=== PATIENT | female | born 1970 | race American Indian/Alaskan Native ===

== ENCOUNTER 2021-11-04 10:15 | Emergency (ER) | payer MEDICAID ==
--- NOTE | 2021-11-04 10:28 | Event Note ---
ED Screening Note Date of service: 11/04/21 Time: 10:26 ED Screening Note: 51-year-old female with a past medical history of depression and bipolar disorder presents to the ER today with complaints of suicidal ideation, feeling depressed and trying to overdose on Ambien. Patient states that she has had a history of overdose on Ambien before. She states that she has been taking Ambien for the past 9 days, 2 tablets at night and in the past 9 days she is taking 18 tablets. She states that this is not a prescribed medication for her. She denies any illicit drug use or alcohol abuse. This initial assessment/diagnostic orders/clinical plan/treatment(s) is/are subject to change based on patients health status, clinical progression and re- assessment by fellow clinical providers in the ED. Further treatment and workup at subsequent clinical providers discretion. Patient/guardian urged not to elope from the ED as their condition may be serious if not clinically assessed and managed. Initial orders include: Psych order set
[2021-11-04 11:15] LABS: Bilirubin,Urine NEG (Negative); Blood,Urine NEG (Negative); Color,Urine Yellow (Yellow); Mucus,Urine FEW /HPF; Urobilinogen,Urine < 2.0 mg/dL (<2.0)
[2021-11-04 11:20] LABS: Hematocrit 47.1 % (30.3-42.9); Hemoglobin 15.1 gm/dl (10.1-14.3); Mean Corpuscular HGB Conc 32 % (30-34); Mean Corpuscular Volume 95 fl (79-97); Red Blood Count 4.97 M/mm3 (3.65-5.03); Red Cell Distribution Width 14.9 % (13.2-15.2)
[2021-11-04 11:23] LABS: Amphetamine Screen,Urine Negative; Benzodiazepines Screen,Urine Negative; Cannabinoid Screen,Urine Negative; Cocaine Screen,Urine Negative; Methadone Screen,Urine Negative; Opiate Screen,Urine Negative; Platelet Count 335 K/mm3 (140-440)
--- NOTE | 2021-11-04 11:27 | Emergency Department Report ---
HPI - General Chief Complaint: Psych Time Seen by Provider: 11/04/21 10:58 - HPI HPI: 51-year-old female with history of major depressive disorder presents complaining of worsening depression and suicidal ideation over the past 9 days. Patient reports that 1 year ago she tried to commit suicide by overdosing on her prescribed Ambien. She says for the last 9 days she has been taking Ambien 12.5 mg twice daily not for sleep but to "numb the pain". She states that she wants to end her life and that if she had more Ambien she would try to overdose on the medication. She states that she is seeing red eyes in the edilia that looks like the devil. She denies auditory hallucinations. She denies homicidal ideation. She reports that her only physical symptom is mild sore throat over the past couple days. Denies any other physical symptoms or complaints. She is not vaccinated against COVID-19. Denies ingestion of any substances or medications today. ED Past Medical Hx - Past Medical History Previous Medical History?: Yes Hx Psychiatric Treatment: Yes (Depression) Additional medical history: Adominal Hernias - Surgical History Additional Surgical History: Abdominal - Social History Smoking Status: Never Smoker Substance Use Type: None - Medications Home Medications: Home Medications Medication Instructions Recorded Confirmed Last Taken Type Divalproex ER [DepaKOTE ER] 500 mg PO QDAY 11/05/21 11/06/21 Unknown History Lurasidone HCl [Latuda] 1 tab PO QHS 11/05/21 11/06/21 Unknown History Selenium 1 cap PO DAILY 11/05/21 11/06/21 Unknown History Zolpidem Tartrate [Ambien CR] 12.5 mg PO QHS 11/05/21 11/06/21 11/04/21 History Mirtazapine [Remeron] 15 mg PO HS 11/06/21 11/06/21 Unknown History cephALEXin [Keflex] 500 mg PO BID 11/06/21 11/06/21 11/05/21 10:00 History ED Review of Systems ROS: Stated complaint: BAD HEADACHE Other details as noted in HPI Comment: All other systems reviewed and negative Constitutional: denies: chills, fever Eyes: denies: eye pain, vision change ENT: throat pain. denies: congestion Respiratory: denies: cough, shortness of breath Cardiovascular: denies: chest pain, palpitations Gastrointestinal: denies: abdominal pain, nausea, vomiting Genitourinary: denies: dysuria, frequency Musculoskeletal: denies: back pain, arthralgia Skin: denies: rash, lesions Neurological: denies: weakness, numbness, paresthesias Psychiatric: depression, visual hallucinations, suicidal thoughts. denies: auditory hallucinations, homicidal thoughts Physical Exam - Physical Exam Vital Signs: Vital Signs 11/04/21 10:27 Temperature 98.8 F Pulse Rate 79 Respiratory 20 Rate Blood Pressure 132/99 O2 Sat by Pulse 94 Oximetry Physical Exam: GENERAL: Obese female in no acute distress. HEAD: Normocephalic. No obvious signs of trauma. ENT: Dry mucous membranes. Posterior pharynx is normal-appearing without significant tonsillar hypertrophy or exudates. EYES: Extraocular movements are intact. Pupils are equal round and reactive to light bilaterally NECK: Supple. Full ROM is intact. Trachea is midline. LUNGS: Nonlabored breathing. Equal chest rise bilaterally. Clear to auscultation bilaterally. CARDIOVASCULAR: Regular rate and rhythm. No murmurs or rubs. VASCULAR: Cap refill < 2 seconds ABDOMEN: Abdomen is soft and nondistended. There is no significant tenderness, guarding or rebound. SKIN: Skin is warm and dry NEURO: Patient is awake, alert, and oriented. special forces engineer sergeant II-XII grossly intact. No focal deficits. Normal motor and sensory exam throughout. Normal speech. MUSCULOSKELETAL: No obvious deformities. No significant tenderness. Normal ROM throughout. ED Course Vital Signs 11/04/21 10:27 Temperature 98.8 F Pulse Rate 79 Respiratory 20 Rate Blood Pressure 132/99 O2 Sat by Pulse 94 Oximetry ED Medical Decision Making - Lab Data Result diagrams: 11/05/21 05:06 11/04/21 10:38 Lab Results 11/04/21 11/04/21 11/04/21 Range/Units 10:38 10:38 10:38 WBC 16.9 H (4.5-11.0) K/mm3 RBC 4.97 (3.65-5.03) M/mm3 Hgb 15.1 H (10.1-14.3) gm/dl Hct 47.1 H (30.3-42.9) % MCV 95 (79-97) fl MCH 30 (28-32) pg MCHC 32 (30-34) % RDW 14.9 (13.2-15.2) % Plt Count 335 (140-440) K/mm3 Lymph % (Auto) Safety Grooving Machine Operator [place] % (Auto) Safety Grooving Machine Operator Eos % (Auto) Safety Grooving Machine Operator Baso % (Auto) Safety Grooving Machine Operator Lymph # (Auto) Safety Grooving Machine Operator [place] # (Auto) Safety Grooving Machine Operator Eos # (Auto) Safety Grooving Machine Operator Baso # (Auto) Safety Grooving Machine Operator Seg Neutrophils % Safety Grooving Machine Operator Seg Neutrophils # Safety Grooving Machine Operator Sodium (137-145) mmol/L Potassium (3.6-5.0) mmol/L Chloride (98-107) mmol/L Carbon Dioxide (22-30) mmol/L Anion Gap mmol/L BUN (7-17) mg/dL Creatinine (0.6-1.2) mg/dL Estimated GFR ml/min BUN/Creatinine Ratio % Glucose (65-100) mg/dL Calcium (8.4-10.2) mg/dL HCG, Qual (Negative) Urine Color Yellow (Yellow) Urine Turbidity Cloudy (Clear) Urine pH 5.0 (5.0-7.0) Ur Specific [place] 1.021 (1.003-1.030) Urine Protein 30 mg/dl (Negative) mg/dL Urine Glucose (UA) Neg (Negative) mg/dL Urine Ketones Tr (Negative) mg/dL Urine Blood Neg (Negative) Urine Nitrite Neg (Negative) Urine Bilirubin Neg (Negative) Urine Urobilinogen < 2.0 (<2.0) mg/dL Ur Leukocyte Esterase Tr (Negative) Urine WBC (Auto) 8.0 H (0.0-6.0) /HPF Urine RBC (Auto) 3.0 (0.0-6.0) /HPF U Epithel Cells (Auto) 6.0 (0-13.0) /HPF Urine Mucus Few /HPF Salicylates (2.8-20.0) mg/dL Urine Opiates Screen Negative Urine Methadone Screen Negative Acetaminophen (10.0-30.0) ug/mL Ur Barbiturates Screen Negative Ur Phencyclidine Scrn Negative Ur Amphetamines Screen Negative U Benzodiazepines Scrn Negative Urine Cocaine Screen Negative U Marijuana (THC) Screen Negative Drugs of Abuse Note Disclamer Plasma/Serum Alcohol (0-0.07) % 11/04/21 11/04/21 11/04/21 Range/Units 10:38 10:38 10:38 WBC (4.5-11.0) K/mm3 RBC (3.65-5.03) M/mm3 Hgb (10.1-14.3) gm/dl Hct (30.3-42.9) % MCV (79-97) fl MCH (28-32) pg MCHC (30-34) % RDW (13.2-15.2) % Plt Count (140-440) K/mm3 Lymph % (Auto) [place] % (Auto) Eos % (Auto) Baso % (Auto) Lymph # (Auto) [place] # (Auto) Eos # (Auto) Baso # (Auto) Seg Neutrophils % Seg Neutrophils # Sodium 138 (137-145) mmol/L Potassium 4.4 (3.6-5.0) mmol/L Chloride 96.4 L (98-107) mmol/L Carbon Dioxide 23 (22-30) mmol/L Anion Gap 23 mmol/L BUN 8 (7-17) mg/dL Creatinine 0.7 (0.6-1.2) mg/dL Estimated GFR > 60 ml/min BUN/Creatinine Ratio 11 % Glucose 99 (65-100) mg/dL Calcium 9.9 (8.4-10.2) mg/dL HCG, Qual (Negative) Urine Color (Yellow) Urine Turbidity (Clear) Urine pH (5.0-7.0) Ur Specific [place] (1.003-1.030) Urine Protein (Negative) mg/dL Urine Glucose (UA) (Negative) mg/dL Urine Ketones (Negative) mg/dL Urine Blood (Negative) Urine Nitrite (Negative) Urine Bilirubin (Negative) Urine Urobilinogen (<2.0) mg/dL Ur Leukocyte Esterase (Negative) Urine WBC (Auto) (0.0-6.0) /HPF Urine RBC (Auto) (0.0-6.0) /HPF U Epithel Cells (Auto) (0-13.0) /HPF Urine Mucus /HPF Salicylates < 0.3 L (2.8-20.0) mg/dL Urine Opiates Screen Urine Methadone Screen Acetaminophen 5.0 L (10.0-30.0) ug/mL Ur Barbiturates Screen Ur Phencyclidine Scrn Ur Amphetamines Screen U Benzodiazepines Scrn Urine Cocaine Screen U Marijuana (THC) Screen Drugs of Abuse Note Plasma/Serum Alcohol (0-0.07) % 11/04/21 11/04/21 Range/Units 10:38 12:11 WBC (4.5-11.0) K/mm3 RBC (3.65-5.03) M/mm3 Hgb (10.1-14.3) gm/dl Hct (30.3-42.9) % MCV (79-97) fl MCH (28-32) pg MCHC (30-34) % RDW (13.2-15.2) % Plt Count (140-440) K/mm3 Lymph % (Auto) [place] % (Auto) Eos % (Auto) Baso % (Auto) Lymph # (Auto) [place] # (Auto) Eos # (Auto) Baso # (Auto) Seg Neutrophils % Seg Neutrophils # Sodium (137-145) mmol/L Potassium (3.6-5.0) mmol/L Chloride (98-107) mmol/L Carbon Dioxide (22-30) mmol/L Anion Gap mmol/L BUN (7-17) mg/dL Creatinine (0.6-1.2) mg/dL Estimated GFR ml/min BUN/Creatinine Ratio % Glucose (65-100) mg/dL Calcium (8.4-10.2) mg/dL HCG, Qual Negative (Negative) Urine Color (Yellow) Urine Turbidity (Clear) Urine pH (5.0-7.0) Ur Specific [place] (1.003-1.030) Urine Protein (Negative) mg/dL Urine Glucose (UA) (Negative) mg/dL Urine Ketones (Negative) mg/dL Urine Blood (Negative) Urine Nitrite (Negative) Urine Bilirubin (Negative) Urine Urobilinogen (<2.0) mg/dL Ur Leukocyte Esterase (Negative) Urine WBC (Auto) (0.0-6.0) /HPF Urine RBC (Auto) (0.0-6.0) /HPF U Epithel Cells (Auto) (0-13.0) /HPF Urine Mucus /HPF Salicylates (2.8-20.0) mg/dL Urine Opiates Screen Urine Methadone Screen Acetaminophen (10.0-30.0) ug/mL Ur Barbiturates Screen Ur Phencyclidine Scrn Ur Amphetamines Screen U Benzodiazepines Scrn Urine Cocaine Screen U Marijuana (THC) Screen Drugs of Abuse Note Plasma/Serum Alcohol < 0.01 (0-0.07) % - Radiology Data Radiology results: report reviewed - Medical Decision Making 51-year-old female presents with suicidal ideation. She reports that because of her depression she has been taking Ambien twice daily during the day for the past 9 days to reduce her emotional distress. She reports some mild sore throat and headache but no other significant physical symptoms or complaints. She is afebrile with normal vital signs with the exception of oxygen saturation 94% on room air. On physical examination, the patient has dry mucous membranes but the remainder of her physical exam is grossly within normal limits. She has a nonfocal neurologic exam. Her posterior pharynx is not significantly erythemato us and I do not appreciate significant tonsillar hypertrophy or exudates. 1013 order has been signed and initiated. Medical clearance labs have been sent. Labs have partially resulted revealing white blood cell count of 16.9 with elevated hemoglobin of 15.1. Given that the patient has very dry mucous membranes on exam, I suspect that this may be due to severe volume depletion with hemoconcentration. I spoke with the patient who confirmed that for the past week she has not been eating or drinking much at all and does say that she feels dehydrated. Nonetheless, we will send blood and urine cultures and give 2 L of IV fluids. We will order a chest x-ray and EKG and follow up the remainin g labs. Chemistry reveals normal kidney function with no significant electrolyte abnormalities. Chest x-ray reveals no acute abnormalities. Urinalysis reveals eight WBCs with trace leukoesterase. I spoke with the patient who does report that for the past few days she has had some dysuria although she denies any frequency/urgency. Given the possibility of urinary tract infection, will treat with Keflex 500 mg twice daily x7 days. Repeat CBC shows improvement of leukocytosis to 13.7. We will repeat the CBC tomorrow but she is medically cleared for psychiatric evaluation and placement as necessary. The patient's leukocytosis continues to improve. She was seen by the mental health/psychiatry team who recommended further inpatient psychiatric treatment. Currently awaiting placement Admitted to [facility] psych. Critical care attestation.: If time is entered above; I have spent that time in minutes in the direct care of this critically ill patient, excluding procedure time. ED Disposition Clinical Impression: UTI (urinary tract infection), Dehydration, Suicidal ideation, Ambien use disorder, mild, abuse Disposition: ADMITTED INPATIENT Is pt being admited?: Yes Condition: Stable
[2021-11-04 11:30] LABS: Blood Urea Nitrogen 8 mg/dL (7-17); Calcium 9.9 mg/dL (8.4-10.2); Hemolysis Index 112
[2021-11-04] MEDS ORDERED: SODIUM CHLORIDE 0.9% 1000 ML 1,000 ML IV ONE ×3 (11:31→11:41)
[2021-11-04 11:54] LABS: BUN/Creatinine Ratio 11
--- NOTE | 2021-11-04 13:16 | XRay Report ---
CHEST 2 VIEWS INDICATION / CLINICAL INFORMATION: leukocytosis. COMPARISON: None available. FINDINGS: SUPPORT DEVICES: None. HEART / MEDIASTINUM: No significant abnormality. LUNGS / PLEURA: No significant pulmonary or pleural abnormality. No pneumothorax. ADDITIONAL FINDINGS: No significant additional findings. IMPRESSION: 1. No acute findings. Signer Name: Demetrio Booth DO Signed: 11/04/2021 1:12 PM Workstation Name: [id number]
[2021-11-04] MEDS ORDERED: cephALEXin 500 MG CAP PO ONE (13:56)
[2021-11-04] MEDS: cephALEXin 500 MG CAP PO SCH (14:43)
[2021-11-04 17:51] LABS: Basophils % (Auto) 0.2 % (0.0-1.8); Eosinophils % (Auto) 0.1 % (0.0-4.3); Hematocrit 41.4 % (30.3-42.9); Hemoglobin 13.4 gm/dl (10.1-14.3); Lymphocytes # (Auto) 1.2 K/mm3 (1.2-5.4); Lymphocytes % (Auto) 8.5 % (13.4-35.0); Mean Corpuscular HGB Conc 32 % (30-34); Mean Corpuscular Volume 93 fl (79-97); Monocytes # (Auto) 0.4 K/mm3 (0.0-0.8); Monocytes % (Auto) 3.3 % (0.0-7.3); Platelet Count 323 K/mm3 (140-440); Red Blood Count 4.46 M/mm3 (3.65-5.03); Red Cell Distribution Width 14.7 % (13.2-15.2)
[2021-11-05 05:36] LABS: Basophils % (Auto) 0.3 % (0.0-1.8); Eosinophils # (Auto) 0.1 K/mm3 (0.0-0.4); Eosinophils % (Auto) 0.7 % (0.0-4.3); Hematocrit 39.9 % (30.3-42.9); Lymphocytes # (Auto) 2.1 K/mm3 (1.2-5.4); Lymphocytes % (Auto) 17.2 % (13.4-35.0); Mean Corpuscular HGB Conc 33 % (30-34); Mean Corpuscular Volume 94 fl (79-97); Monocytes # (Auto) 0.7 K/mm3 (0.0-0.8); Monocytes % (Auto) 5.5 % (0.0-7.3); Platelet Count 301 K/mm3 (140-440); Red Blood Count 4.26 M/mm3 (3.65-5.03); Red Cell Distribution Width 14.2 % (13.2-15.2)
[2021-11-05] MEDS: cephALEXin 500 MG CAP PO SCH ×2 (10:40→10:58)
--- NOTE | 2021-11-05 11:30 | Consultation ---
History of Present Illness - Reason for Consult Consult date: 11/05/21 Reason for consult: suicidal ideation - History of Present Psychiatric Illness ED Note: 51-year-old female with history of major depressive disorder presents complaining of worsening depression and suicidal ideation over the past 9 days. Patient reports that 1 year ago she tried to commit suicide by overdosing on her prescribed Ambien. She says for the last 9 days she has been taking Ambien 12.5 mg twice daily not for sleep but to "numb the pain". She states that she wants to end her life and that if she had more Ambien she would try to overdose on the medication. She states that she is seeing red eyes in the edilia that looks like the devil. She denies auditory hallucinations. She denies homicidal ideation. She reports that her only physical symptom is mild sore throat over the past couple days. Denies any other physical symptoms or complaints. She is not vaccinated against COVID-19. Denies ingestion of any substances or medications today. Finesse Khoury is a 51 year old female with history of depression and Bipolar disorder. In my interview with the patient, she endorses being depressed and reports that she took 12.5mg of Ambien twice a day; she states she was not try to kill herself but was trying to " numb myself from the pain ." The patient states recent trigger such as spending time with her sister who had 4 children staying in the house. The patient states she sees her psychiatrist Dr. Marlin Rodriguez" whom she has been seeing for the past 3 years and she is scheduled to see him on the of this month. The patient denies any current suicidal/homicidal ideation and denies hallucinations. PAST PSYCHIATRIC HISTORY: Diagnoses: Depression, Bipolar Suicide attempts or Self-harm behavior: Yes Prior psychiatric hospitalizations: Yes Substance Abuse history: Denies Previous psychiatric medications tried: Latuda Outpatient treatment:Yes PAST MEDICAL HISTORY: Family Psychiatric History: None reported or documented SOCIAL HISTORY Marital Status: Single Living Arrangements: Lives with daughter Employment Status: Disability Access to guns/weapons: Denies Education: 12th grade History of Abuse: n/a Legal History:Unknown REVIEW OF SYSTEMS Constitutional: Negative for weight loss ENT: Negative for stridor Respiratory: Negative for cough or hemoptysis All other systems reviewed and are negative MENTAL STATUS EXAMINATION General Appearance and Behavior: Age appropriate, good hygiene, wearing appropriate clothes, uncooperative polite with questioning. Cooperation: cooperative Psychomotor Behavior: Psychomotor agitation Mood: Depressed Affect and affective range: congruent Thought Process:Goal oriented Thought Content: reality oriented Speech:Normal Intellectual Functioning: Average Suicidal Ideation:Denies Homicidal Ideation: Denied hallucination: Denied Impulse Control:Questionable Insight and Judgment:limited insight and fair judgment Memory: Intact Attention:Distractible Orientation: Alert and oriented Diagnoses: (1) Bipolar Disorder- F01.50 Treatment Plan: Continue - Home Medications. 1013 Continue home meds Patient should be compliant with medications and not to use drugs and not to drink alcohol. PSYCHOTHERAPY: Supportive psychotherapy provided MEDICAL: Per primary team DELIRIUM PRECAUTIONS: Please re-orient patient frequently, keep lights on during the day, and minimize benzodiazepines and opiates as these medications could worsen patient's confusion. LABORER TREE TAPPING: Per medical team DISPOSITION: Recommend acute inpatient psychiatric hospitalization at this time FOLLOW-UP: Will follow. Thank you for the consult. Please contact with any questions and/or concerns. Medications and Allergies Allergies Allergy/AdvReac Type Severity Reaction Status Date / Time ibuprofen Allergy Hives Verified 05/08/20 20:11 Home Medications Medication Instructions Recorded Confirmed Last Taken Type Divalproex ER [DepaKOTE ER] 500 mg PO QDAY 11/05/21 11/05/21 Unknown History Lurasidone HCl [Latuda] 1 tab PO QHS 11/05/21 11/05/21 Unknown History Selenium 1 cap PO DAILY 11/05/21 11/05/21 Unknown History Zolpidem Tartrate [Ambien CR] 12.5 mg PO QHS 11/05/21 11/05/21 11/04/21 History Active Meds: Active Medications Cephalexin (Cephalexin 500 Mg Cap) 500 mg PO BID [facility]; Protocol Stop: 11/11/21 13:59 Last Admin: 11/05/21 10:58 Dose: 500 mg Mental Status Exam - Vital signs Last Vital Signs Temp 98.4 F 11/05/21 07:44 Pulse 69 11/05/21 07:44 Resp 18 11/05/21 07:44 BP 118/71 11/05/21 07:44 Pulse Ox 98 11/05/21 07:44 Results Result Diagrams: 11/05/21 05:06 11/04/21 10:38 Abnormal lab results 11/04/21 11/04/21 11/04/21 Range/Units 10:38 10:38 10:38 WBC (4.5-11.0) K/mm3 Lymph % (Auto) (13.4-35.0) % Seg Neutrophils % (40.0-70.0) % Seg Neutrophils # (1.8-7.7) K/mm3 Chloride 96.4 L (98-107) mmol/L Salicylates < 0.3 L (2.8-20.0) mg/dL Acetaminophen 5.0 L (10.0-30.0) ug/mL 11/04/21 11/05/21 Range/Units 17:29 05:06 WBC 13.7 H 12.0 H (4.5-11.0) K/mm3 Lymph % (Auto) 8.5 L (13.4-35.0) % Seg Neutrophils % 87.9 H 76.3 H (40.0-70.0) % Seg Neutrophils # 12.1 H 9.2 H (1.8-7.7) K/mm3 Chloride (98-107) mmol/L Salicylates (2.8-20.0) mg/dL Acetaminophen (10.0-30.0) ug/mL All other labs normal.
[2021-11-05] MEDS ORDERED: DIVALPROEX ER 500 MG TAB PO SCH (12:00)
[2021-11-05] MEDS ORDERED: hydrOXYzine PAMOATE 25 MG CAP PO ONE (12:58)
[2021-11-05 20:50] VITALS: BP 112/73
[2021-11-05] MEDS ORDERED: LURASIDONE HCL 40 MG PO SCH (22:00)
[2021-11-05] MEDS ORDERED: MIRTAZAPINE 15 MG TAB PO SCH (22:00)
[2021-11-06] MEDS: cephALEXin 500 MG CAP PO SCH (00:53)
--- NOTE | 2021-11-09 08:18 | Electrocardiograph Report ---
[facility] Test Date: 2021-11-04 Test Time: 13:49:35 Pat Name: CINDI NICHOLS Department: Room: Gender: F [employer] Fin[employer] Supervisor: SAMMY : 1970 Requested By: MIRIAN MCFARLAND Order Number: [id number] Reading MD: Del Joyner Measurements Intervals Tranquillity Rate: 84 P: 45 NM: 162 QRS: -4 QRSD: 84 T: 9 QT: 357 QTc: 421 Interpretive Statements Sinus rhythm Left ventricular hypertrophy No previous ECG available for comparison Electronically Signed On 11-09-2021 8:17:36 EST by Del Joyner
== END 2021-11-06 01:40 | disposition admitted as inpatient to this hospital (09) ==
LOC: ED 10:15
DX: N39.0 Urinary tract infection, site not specified (principal); E86.0 Dehydration; R45.851 Suicidal ideations; Z98.890 Other specified postprocedural states; Z88.8 Allergy status to other drugs, medicaments and biological substances
CPT/HCPCS: 36415; 71046; 80048; 80307; 80320; 81001; 84703; 85025; 87040; 87086; 93005; J3490; Q0162; G0480; J7030; Q0177; U0003

== ENCOUNTER 2022-04-04 17:24 | Emergency (ER) | payer MEDICAID ==
[2022-04-04 18:35] LABS: Calcium 9.8 mg/dL (8.4-10.2)
[2022-04-04 18:56] LABS: Basophils % (Auto) 0.4 % (0.0-1.8); Eosinophils % (Auto) 0.6 % (0.0-4.3); Hematocrit 45.6 % (30.3-42.9); Hemoglobin 15.1 gm/dl (10.1-14.3); Lymphocytes # (Auto) 2.2 K/mm3 (1.2-5.4); Lymphocytes % (Auto) 47.8 % (13.4-35.0); Mean Corpuscular HGB Conc 33 % (30-34); Mean Corpuscular Volume 93 fl (79-97); Monocytes # (Auto) 0.3 K/mm3 (0.0-0.8); Monocytes % (Auto) 5.6 % (0.0-7.3); Platelet Count 374 K/mm3 (140-440); Red Blood Count 4.91 M/mm3 (3.65-5.03); Red Cell Distribution Width 14.8 % (13.2-15.2)
--- NOTE | 2022-04-04 22:06 | Emergency Department Report ---
ED Psych HPI - General Chief Complaint: Psych Stated Complaint: SI/DEPRESSION Time Seen by Provider: 04/04/22 20:54 Source: patient Mode of arrival: Ambulatory - History of Present Illness Initial Comments: Patient is a 51-year-old female presenting with complaint of suicidal ideation beginning today. She is unable to identify any specific triggers. States that she currently takes Latuda and trazodone. States she planned to overdose on her trazodone. - Related Data Home Medications Medication Instructions Recorded Confirmed Last Taken Divalproex ER [DepaKOTE ER] 500 mg PO QDAY 11/05/21 11/06/21 Unknown Lurasidone HCl [Latuda] 1 tab PO QHS 11/05/21 11/06/21 Unknown Selenium 1 cap PO DAILY 11/05/21 11/06/21 Unknown Zolpidem Tartrate [Ambien CR] 12.5 mg PO QHS 11/05/21 11/06/21 11/04/21 Mirtazapine [Remeron] 15 mg PO HS 11/06/21 11/06/21 Unknown cephALEXin [Keflex] 500 mg PO BID 11/06/21 11/06/21 11/05/21 10:00 Previous Rx's Medication Instructions Recorded Last Taken Type Divalproex ER [DepaKOTE ER] 500 mg PO QDAY 30 Days #30 tablet 11/09/21 Unknown Rx Lurasidone HCl [Latuda] 40 mg PO DAILY 30 Days #30 11/09/21 Unknown Rx Mirtazapine [Remeron 15mg TAB] 15 mg PO QHS 30 Days #30 11/09/21 Unknown Rx cephALEXin [Keflex] 500 mg PO BID 5 Days #10 cap 11/09/21 Unknown Rx Allergies Allergy/AdvReac Type Severity Reaction Status Date / Time ibuprofen Allergy Hives Verified 05/08/20 20:11 ED Review of Systems ROS: Stated complaint: SI/DEPRESSION Other details as noted in HPI Comment: All other systems reviewed and negative Constitutional: denies: chills, fever Respiratory: denies: cough, shortness of breath, wheezing Cardiovascular: denies: chest pain, palpitations Gastrointestinal: denies: abdominal pain, nausea, diarrhea Genitourinary: denies: urgency, dysuria, discharge Musculoskeletal: denies: back pain, joint swelling, arthralgia Skin: denies: rash, lesions Neurological: denies: headache, weakness Psychiatric: denies: suicidal thoughts ED Past Medical Hx - Past Medical History Hx Psychiatric Treatment: Yes (Depression) Additional medical history: Adominal Hernias - Surgical History Additional Surgical History: Abdominal - Social History Smoking Status: Never Smoker Substance Use Type: None - Medications Home Medications: Home Medications Medication Instructions Recorded Confirmed Last Taken Type Divalproex ER [DepaKOTE ER] 500 mg PO QDAY 11/05/21 11/06/21 Unknown History Lurasidone HCl [Latuda] 1 tab PO QHS 11/05/21 11/06/21 Unknown History Selenium 1 cap PO DAILY 11/05/21 11/06/21 Unknown History Zolpidem Tartrate [Ambien CR] 12.5 mg PO QHS 11/05/21 11/06/21 11/04/21 History Mirtazapine [Remeron] 15 mg PO HS 11/06/21 11/06/21 Unknown History cephALEXin [Keflex] 500 mg PO BID 11/06/21 11/06/21 11/05/21 10:00 History Divalproex ER [DepaKOTE ER] 500 mg PO QDAY 30 Days #30 tablet 11/09/21 Unknown Rx Lurasidone HCl [Latuda] 40 mg PO DAILY 30 Days #30 11/09/21 Unknown Rx Mirtazapine [Remeron 15mg TAB] 15 mg PO QHS 30 Days #30 11/09/21 Unknown Rx cephALEXin [Keflex] 500 mg PO BID 5 Days #10 cap 11/09/21 Unknown Rx ED Physical Exam - General Limitations: No Limitations General appearance: alert, in no apparent distress - Head Head exam: Present: atraumatic, normocephalic - Respiratory Respiratory exam: Present: normal lung sounds bilaterally. Absent: respiratory distress - Cardiovascular Cardiovascular Exam: Present: regular rate, normal rhythm, normal heart sounds - GI/Abdominal GI/Abdominal exam: Present: soft. Absent: distended, tenderness - Neurological Exam Neurological exam: Present: alert, oriented X3, CN II-XII intact - Psychiatric Psychiatric exam: Present: normal affect, suicidal ideation - Skin Skin exam: Present: warm, dry, intact, normal color ED Course Vital Signs 04/04/22 04/04/22 17:31 22:55 Temperature 97.6 F 98.0 F Pulse Rate 80 77 Respiratory 16 18 Rate Blood Pressure 124/92 120/88 [Left] O2 Sat by Pulse 96 97 Oximetry ED Medical Decision Making - Lab Data Result diagrams: 04/04/22 17:37 04/04/22 17:37 - Medical Decision Making Patient presenting to ED with complaint of suicidal ideations with a plan. Labs are reviewed. Patient is medically cleared. 1013 ordered. Patient awaiting mental health assessment. Critical care attestation.: If time is entered above; I have spent that time in minutes in the direct care of this critically ill patient, excluding procedure time. ED Disposition Clinical Impression: Suicidal ideation Disposition: 30 STILL A PATIENT Is pt being admited?: No Condition: Stable
--- NOTE | 2022-04-05 11:17 | Consultation ---
History of Present Illness - Reason for Consult Consult date: 04/05/22 Reason for consult: SI, ETOH - History of Present Psychiatric Illness HPI: Patient is a 51-year-old female presenting with complaint of suicidal ideation beginning today. She is unable to identify any specific triggers. States that she currently takes Latuda and trazodone. States she planned to overdose on her trazodone. The patient was seen today. She is calm and cooperative. The patient says she was drinking and smoking marijuana. She states she started feeling suicidal. The patient says she drinks a bottle of [place] daily. She says "when I drink I start feeling like this." The patient says "I feel good now. I don't feel suicidal at all." The patient denies homicidal thoughts as well. She also denies hallucinations of any kind. She says she feels safe going home. Discussed with the patient the need for alcohol rehab. She would like resources to address on an outpatient basis. PAST PSYCHIATRIC HISTORY: Diagnoses: Bipolar Suicide attempts or Self-harm behavior: Denies Prior psychiatric hospitalizations: Yes Substance Abuse history: Alcohol Previous psychiatric medications tried: Latuda and Trazodone Outpatient treatment: Denies PAST MEDICAL HISTORY: None reported Family Psychiatric History: None reported SOCIAL HISTORY Marital Status: Living Arrangements: with family Employment Status: Disabled Access to guns/weapons: Denies Education: History of Abuse: denies Legal History: denies REVIEW OF SYSTEMS Constitutional: Negative for weight loss ENT: Negative for stridor Respiratory: Negative for cough or hemoptysis All other systems reviewed and are negative MENTAL STATUS EXAMINATION General Appearance: Dressed appropriately Behavior: calm and cooperative Mood: pretty good Affect and affective range: congruent with mood Thought Process: Goal directed Thought content: reality oriented Speech: Normal tone and pace Suicidal Ideation: Denies Homicidal Ideation: Denies Hallucinations: Denies Delusions: None elicited Insight and Judgment: Limited insight and judgment Memory: Limited Attention: attentive Orientation: Alert, oriented Assessment Bipolar Disorder Treatment d/c 1013 Continue previously prescribed meds Medical: Per primary Disposition: Do not recommend acute psychiatric inpatient treatment The line maintainer section to complete safety plan, and give the patient resources for CBT and alcohol rehab The patient to abstain from all alcoholic substance Will sign off. Thanks Case staffed with Dr. Knapp Medications and Allergies Allergies Allergy/AdvReac Type Severity Reaction Status Date / Time ibuprofen Allergy Hives Verified 05/08/20 20:11 Home Medications Medication Instructions Recorded Confirmed Last Taken Type Divalproex ER [DepaKOTE ER] 500 mg PO QDAY 11/05/21 11/06/21 Unknown History Lurasidone HCl [Latuda] 1 tab PO QHS 11/05/21 11/06/21 Unknown History Selenium 1 cap PO DAILY 11/05/21 11/06/21 Unknown History Zolpidem Tartrate [Ambien CR] 12.5 mg PO QHS 11/05/21 11/06/21 11/04/21 History Mirtazapine [Remeron] 15 mg PO HS 11/06/21 11/06/21 Unknown History cephALEXin [Keflex] 500 mg PO BID 11/06/21 11/06/21 11/05/21 10:00 History Divalproex ER [DepaKOTE ER] 500 mg PO QDAY 30 Days #30 tablet 11/09/21 Unknown Rx Lurasidone HCl [Latuda] 40 mg PO DAILY 30 Days #30 11/09/21 Unknown Rx Mirtazapine [Remeron 15mg TAB] 15 mg PO QHS 30 Days #30 11/09/21 Unknown Rx cephALEXin [Keflex] 500 mg PO BID 5 Days #10 cap 11/09/21 Unknown Rx Mental Status Exam - Vital signs Last Vital Signs Temp 97.8 F 04/05/22 09:35 Pulse 97 H 04/05/22 09:35 Resp 18 04/05/22 09:35 BP 134/91 04/05/22 09:35 Pulse Ox 97 04/05/22 09:35 Results Result Diagrams: 04/04/22 17:37 04/04/22 17:37 Abnormal lab results 04/04/22 04/04/22 04/04/22 Range/Units 17:37 17:37 17:37 Hgb (10.1-14.3) gm/dl Hct (30.3-42.9) % Lymph % (Auto) (13.4-35.0) % Creatinine 1.6 H (0.6-1.2) mg/dL Glucose 102 H (65-100) mg/dL Salicylates < 0.3 L (2.8-20.0) mg/dL Acetaminophen 5.0 L (10.0-30.0) ug/mL 04/04/22 Range/Units 17:37 Hgb 15.1 H (10.1-14.3) gm/dl Hct 45.6 H (30.3-42.9) % Lymph % (Auto) 47.8 H (13.4-35.0) % Creatinine (0.6-1.2) mg/dL Glucose (65-100) mg/dL Salicylates (2.8-20.0) mg/dL Acetaminophen (10.0-30.0) ug/mL All other labs normal.
--- NOTE | 2022-04-05 20:19 | Emergency Department Report ---
Blank Doc - Documentation Documentation: I have reviewed patient's labs. Patient is a 51-year-old female who presents emergency department with substance abuse and suicidal ideations. I had a [id number] encounter with the patient.
[2022-04-05 23:18] LABS: Amphetamine Screen,Urine PRESUMPTIVE NEGATIVE; Benzodiazepines Screen,Urine PRESUMPTIVE NEGATIVE; Cannabinoid Screen,Urine PRESUMPTIVE POSITIVE; Cocaine Screen,Urine PRESUMPTIVE NEGATIVE; Methadone Screen,Urine PRESUMPTIVE NEGATIVE; Opiate Screen,Urine PRESUMPTIVE NEGATIVE
[2022-04-05 23:36] LABS: Amorphous Crystals,Urine 3+
[2022-04-05 23:47] LABS: Bilirubin,Urine Negative (Negative); Color,Urine Yellow (Yellow)
[2022-04-05 23:48] LABS: Blood,Urine Negative (Negative); Protein,Urine <30 mg dL mg/dL (Negative); Urobilinogen,Urine < 2.0 mg/dL (<2.0)
--- NOTE | 2022-04-06 09:58 | Progress Note ---
Subjective - Reason for Consult Consult date: 04/06/22 Reason for consult: SI - Chief Complaint Chief complaint: The patient was seen today. I cleared this patient yesterday after she expressed feeling much better with no SI thoughts. Upon MD rounding to discharge the patient she states the suicidal thoughts were back. Today upon evaluating the patient, she again states that she is not suicidal. I ask the patient why was she back and forth. She says she spoke to her daughter and can go back home. The patient also denies homicidal thoughts. She denies hallucinations of any kind. She says "I want to go home now. I don't feel like hurting myself anymore." REVIEW OF SYSTEMS Constitutional: Negative for weight loss ENT: Negative for stridor Respiratory: Negative for cough or hemoptysis All other systems reviewed and are negative MENTAL STATUS EXAMINATION General Appearance: Dressed appropriately Behavior: calm and cooperative Mood: pretty good Affect and affective range: congruent with mood Thought Process: Goal directed Thought content: reality oriented Speech: Normal tone and pace Suicidal Ideation: Denies Homicidal Ideation: Denies Hallucinations: Denies Delusions: None elicited Insight and Judgment: Limited insight and judgment Memory: Limited Attention: attentive Orientation: Alert, oriented Assessment Bipolar Disorder Treatment d/c 1013 Continue previously prescribed meds Medical: Per primary Disposition: Do not recommend acute psychiatric inpatient treatment The annealing operator to complete safety plan, and give the patient resources for CBT and alcohol rehab The patient to abstain from all alcoholic substance Will sign off. Thanks Case staffed with Dr. Knapp Mental Status Exam - Vital signs Last Vital Signs Temp 98.4 F 04/05/22 20:26 Pulse 57 L 04/05/22 20:26 Resp 18 04/05/22 20:26 BP 104/55 04/05/22 20:26 Pulse Ox 98 04/05/22 21:22
[2022-04-06 12:22] VITALS: BP 170/70
== END 2022-04-06 13:30 | disposition home or self-care (01) ==
LOC: EEVIPCON 17:24 → ED 17:24
DX: R45.851 Suicidal ideations (principal); Z20.822 Contact with and (suspected) exposure to COVID-19
CPT/HCPCS: 36415; 80048; 80307; 81001; 85025; 99284; U0003; 80320; G0480